=== PATIENT | male | born 1975 | race Caucasian/White ===

== ENCOUNTER 2016-08-27 21:05 | Emergency (ER) | payer MEDICAID ==
[2016-08-27] MEDS ORDERED: CEPHALEXIN 250 MG Prepack 8 PO STA (22:16)
[2016-08-27] MEDS ORDERED: CEPHALEXIN 250 MG CAPSULE PO STA (22:16)
[2016-08-27] MEDS ORDERED: SULFAMETH/TRIMETH DS 800/160 MG TABLET PO STA (22:16)
[2016-08-27] MEDS ORDERED: CEPHALEXIN 250 MG CAPSULE PO ONE (22:19)
[2016-08-27] MEDS ORDERED: SULFAMETH/TRIMETH DS 800/160 MG TABLET PO ONE (22:20)
[2016-08-27] MEDS ORDERED: CEPHALEXIN 250 MG Prepack 8 PO ONE (22:20)
== END 2016-08-27 22:36 | disposition home or self-care (01) ==
DX: L02.416 Cutaneous abscess of left lower limb (principal); L03.116 Cellulitis of left lower limb; F17.200 Nicotine dependence, unspecified, uncomplicated
CPT/HCPCS: 99283; A9270

== ENCOUNTER 2017-04-11 10:14 | Emergency (ER) | payer MEDICAID ==
[2017-04-11] MEDS ORDERED: KETOROLAC 60 MG/2 ML VIAL IM STA (10:56)
--- NOTE | 2017-04-11 10:58 | ED Physician Documentation ---
PD HPI BACK PAIN - Stated complaint Stated Complaint: BACK PX - Chief complaint Chief Complaint: Back Pain - History obtained from History obtained from: Patient - History of Present Illness Timing - onset: How many weeks ago (1) Timing - duration: Weeks (1) Timing - details: Gradual onset Pain level max: 7 Pain level now: 5 Location: Lower, Right, Left Quality: Pain, Spasm Associated symptoms: No: Fever, Weakness, Numbness, Incontinent of urine, Unable to urinate, Hematuria, Incontinent of stool Improves with: Rest, Meds (motrin) Worsened by: Movement, Lifting, Twisting Contributing factors: Other (doesn't recall any injury). 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 Came for evaluation. No fevers. No IV drug use. No trauma. No neurological deficits Review of Systems Constitutional: denies: Fever, Chills GI: denies: Vomiting Neurologic: denies: Headache, Head injury PD PAST MEDICAL HISTORY - Past Medical History Cardiovascular: None Respiratory: None Neuro: None Endocrine/Autoimmune: None GI: None : None HEENT: None Psych: Depression, Anxiety, Post traumatic stress disorder Musculoskeletal: None Derm: None - Past Surgical History Past Surgical History: Yes - Present Medications Home Medications: Ambulatory Orders Medication Instructions Recorded Confirmed Buspirone HCl 5 mg PO DAILY 04/11/17 04/11/17 Cyclobenzaprine [Flexeril] 10 mg PO TID PRN #20 tablet 04/11/17 Meloxicam [Mobic] 7.5 mg PO BID PRN #20 tablet 04/11/17 - Allergies Allergies/Adverse Reactions: Allergies Allergy/AdvReac Type Severity Reaction Status Date / Time No Known Drug Allergies Allergy Verified 08/06/16 10:39 - Social History Does the pt smoke?: Yes Smoking Status: Current every day smoker Does the pt drink ETOH?: No Does the pt have substance abuse?: No - Immunizations Immunizations are current?: Yes - POLST Patient has POLST: No PD ED PE NORMAL - Vitals Vital signs reviewed: Yes - General General: Alert and oriented X 3, No acute distress - HEENT HEENT: Moist mucous membranes - Neck Neck: Supple, no meningeal sign - Cardiac Cardiac: RRR - Respiratory Respiratory: No respiratory distress, Clear bilaterally - Abdomen Abdomen: Soft, Non tender, Non distended - Back Back: No spinal TTP (To palpation or percussion), Other (Paraspinal spasm, mild low lumbar bilaterally.) - Derm Derm: Warm and dry - Extremities Extremities: Other (normal bilateral lower extremity patellar and ankle jerk reflexes. Normal great toe extension bilaterally) - Neuro Neuro: Alert and oriented X 3, No motor deficit, No sensory deficit - Psych Psych: Normal mood, Normal affect Results - Vitals Vitals: Vital Signs - 24 hr 04/11/17 04/11/17 10:27 11:25 Temperature 36.7 C 36.7 C Heart Rate 73 62 Respiratory 18 18 Rate Blood Pressure 109/68 112/70 O2 Saturation 98 98 Oxygen O2 Source Room air PD MEDICAL DECISION MAKING - ED course Complexity details: considered differential (No ST elevation HI, no aortic dissection, no PE, no tension pneumothorax, no aortic aneurysm), d/w patient ED course: Patient is a 42-year-old male who presents to the emergency department with low back pain, this appears to be muscular in nature. No evidence of fracture, cauda equina, epidural abscess. No neurological deficits. Pain improved. Ambulating without difficulty. Will continue supportive care and follow-up with his doctor. Patient counseled regarding signs and symptoms for which I believe and urgent re-evaluation would be necessary. Patient with good understanding of and agreement to plan and is comfortable going home at this time This document was made in part using voice recognition software. While efforts are made to proofread this document, sound alike and grammatical errors may occur. Departure - Departure Disposition: 01 Home, Self Care Clinical Impression: Back strain Qualifiers: Encounter type: initial encounter Qualified Code(s): S39.012A - Strain of muscle, fascia and tendon of lower back, initial encounter Condition: Good Instructions: ED Sprain Strain Lumbar Follow-Up: your,doctor in 1 week [Other] Prescriptions: Cyclobenzaprine [Flexeril] 10 mg PO TID PRN #20 tablet PRN Reason: Spasms Meloxicam [Mobic] 7.5 mg PO BID PRN #20 tablet PRN Reason: pain Comments: Return if you worsen. This should improve over the next few days. Do not drive or operate heavy machinery while taking the flexeril. Forms: Activity restrictions Discharge Date/Time: 04/11/17 11:25
[2017-04-11] MEDS ORDERED: KETOROLAC 60 MG/2 ML VIAL ONE (11:03)
[2017-04-11 11:28] VITALS: BP 112/70
== END 2017-04-11 11:25 | disposition home or self-care (01) ==
LOC: ED 10:14
DX: S39.012A Strain of muscle, fascia and tendon of lower back, initial encounter (principal); X50.3XXA Overexertion from repetitive movements, initial encounter; F17.200 Nicotine dependence, unspecified, uncomplicated
CPT/HCPCS: 96372; 99283

== ENCOUNTER 2017-04-15 11:53 | Emergency (ER) | payer MEDICAID ==
--- NOTE | 2017-04-15 13:12 | ED Physician Documentation ---
PD HPI BACK PAIN - Stated complaint Stated Complaint: BACK PX - Chief complaint Chief Complaint: Back Pain - History obtained from History obtained from: Patient - History of Present Illness Timing - onset: Other (He has long-standing back spasms which worsened recently and he has pain that goes from the upper lumbar region up to between his shoulder blades that is much worse when he bends over or twists. There is no associated radiation into the legs, no weakness, numbness, tingling, saddle anesthesia, or fever with it. He basically says he needs a new work note because he needs another couple of days off although declines a new prescription , the cyclobenzaprine and Mobic he received here the other day are sufficient.) Review of Systems Constitutional: denies: Fever, Chills Ears: denies: Loss of hearing, Ear pain Nose: denies: Rhinorrhea / runny nose, Congestion PD PAST MEDICAL HISTORY - Past Medical History Past Medical History: Yes Cardiovascular: None Respiratory: None Neuro: None Endocrine/Autoimmune: None GI: None : None HEENT: None Psych: Depression, Anxiety, Post traumatic stress disorder Musculoskeletal: None Derm: None - Past Surgical History Past Surgical History: Yes - Present Medications Home Medications: Ambulatory Orders Medication Instructions Recorded Confirmed Buspirone HCl 5 mg PO DAILY 04/11/17 04/15/17 Cyclobenzaprine [Flexeril] 10 mg PO TID PRN #20 tablet 04/11/17 04/15/17 Meloxicam [Mobic] 7.5 mg PO BID PRN #20 tablet 04/11/17 04/15/17 - Allergies Allergies/Adverse Reactions: Allergies Allergy/AdvReac Type Severity Reaction Status Date / Time No Known Drug Allergies Allergy Verified 04/15/17 12:08 - Social History Does the pt smoke?: Yes Smoking Status: Current every day smoker Does the pt drink ETOH?: No Does the pt have substance abuse?: No - Immunizations Immunizations are current?: Yes - POLST Patient has POLST: No PD ED PE NORMAL - Vitals Vital signs reviewed: Yes - General General: Alert and oriented X 3, No acute distress - Abdomen Abdomen: Non tender - Back Back: No spinal TTP, Other (He has obvious tender spasm of bilateral parathoracic and paralumbar musculature.) - Extremities Extremities: Other (The patient has equal and normal Achilles and patellar reflexes bilaterally. Normal sensation in all areas of the legs. Patient denies saddle anesthesia. Normal strength in flexion-extension at the ankles, knees, and flexion of the hips.) - Neuro Neuro: Alert and oriented X 3, Normal speech - Psych Psych: Normal mood, Normal affect Results - Vitals Vitals: Vital Signs - 24 hr 04/15/17 12:05 Temperature 36.6 C Heart Rate 68 Respiratory 15 Rate Blood Pressure 113/72 O2 Saturation 100 Oxygen O2 Source Room air PD MEDICAL DECISION MAKING - ED course ED course: This patient has seemingly uncomplicated musculoskeletal back pain. The patient has no "red flags." Specifically denies IV drug use, fevers, incontinence, saddle anesthesia. Spinal epidural abscess was considered, given that the patient has no fever, is not diabetic, has no spinal tenderness, does not use IV drugs, and has no bilateral neurologic symptoms, the diagnosis of spinal epidural abscess is considered exceedingly unlikely. Departure - Departure Disposition: 01 Home, Self Care Clinical Impression: Back spasm Condition: Good Record reviewed to determine appropriate education?: Yes Instructions: ED Low Back Pain Injury Comments: Call your doctor to arrange a follow-up appointment, make the next available appointment. In the interim, return anytime if worse or if new symptoms develop. Forms: Activity restrictions
[2017-04-15 13:26] VITALS: BP 116/76
== END 2017-04-15 13:25 | disposition home or self-care (01) ==
LOC: ED 11:53
DX: M62.830 Muscle spasm of back (principal); F17.200 Nicotine dependence, unspecified, uncomplicated
CPT/HCPCS: 99282; 99283

== ENCOUNTER 2019-07-30 15:17 | Emergency (ER) | payer MEDICAID ==
[2019-07-30 15:27] VITALS: BP 120/71
--- NOTE | 2019-07-30 16:49 | ED Physician Documentation ---
PD HPI HEENT - Stated complaint Stated Complaint: BILAT EAR PAIN/DRAINAGE - WORK CLEARANCE - Chief complaint Chief Complaint: Heent - History obtained from History obtained from: Patient - History of Present Illness Timing - onset: How many days ago (he had been sick with URI type symptoms for several days and was off work. He needs note to say okay to return. Also has had cry skin at folds of ear and uses ointment, but is now having drainage and red/tender at those areas.) Timing - duration: Days (few) Timing - details: Gradual onset Location: Right ear (both ear skin at folds behind ear and in inner helix showing some dry skin and then some redness with crusting.), Left ear Associated symptoms: No: Fever Similar symptoms before: Has not had sx before Review of Systems Constitutional: denies: Fever Nose: denies: Rhinorrhea / runny nose, Congestion Throat: denies: Sore throat Respiratory: reports: Cough (previously, improved now) PD PAST MEDICAL HISTORY - Past Medical History Cardiovascular: None Respiratory: None Endocrine/Autoimmune: None GI: None : None HEENT: None Psych: Depression, Anxiety, Post traumatic stress disorder Musculoskeletal: None Derm: None - Past Surgical History Past Surgical History: Yes - Present Medications Home Medications: Ambulatory Orders Medication Instructions Recorded Confirmed Buspirone HCl 5 mg PO DAILY 04/11/17 04/15/17 Cyclobenzaprine [Flexeril] 10 mg PO TID PRN #20 tablet 04/11/17 04/15/17 Meloxicam [Mobic] 7.5 mg PO BID PRN #20 tablet 04/11/17 04/15/17 Doxycycline Monohydrate 100 mg PO BID #10 tablet 07/30/19 Mupirocin 1 applic TP TID #15 g 07/30/19 - Allergies Allergies/Adverse Reactions: Allergies Allergy/AdvReac Type Severity Reaction Status Date / Time No Known Drug Allergies Allergy Verified 07/30/19 15:26 - Social History Does the pt smoke?: Yes Smoking Status: Current every day smoker Does the pt drink ETOH?: No Does the pt have substance abuse?: No - Immunizations Immunizations are current?: Yes - POLST Patient has POLST: No PD ED PE NORMAL - Vitals Vital signs reviewed: Yes - General General: Alert and oriented X 3, Well developed/nourished - HEENT HEENT: Ears normal (TMs and canals okay. The skin at the earlobe folds with d ryness and small secondary infection. ), Pharynx benign, Other (both ear skin at folds behind ear and in inner helix showing some dry skin and then some redness with crusting.) - Neck Neck: Supple, no meningeal sign, No adenopathy - Cardiac Cardiac: RRR, No murmur - Respiratory Respiratory: Clear bilaterally Results - Vitals Vitals: Vital Signs - 24 hr 07/30/19 15:23 Temperature 36.6 C Heart Rate 71 Respiratory 16 Rate Blood Pressure 120/71 O2 Saturation 100 Oxygen O2 Source Room air PD MEDICAL DECISION MAKING - ED course Complexity details: considered differential (had had URI and took couple days off work, need note to say okay to resume work. Also has earlobe skin infection to check, looks like dry skin eczema with secondary impetiginous infection as well. ), d/w patient Departure - Departure Disposition: 01 Home, Self Care Clinical Impression: Skin infection Condition: Stable Record reviewed to determine appropriate education?: Yes Prescriptions: Doxycycline Monohydrate 100 mg PO BID #10 tablet Mupirocin 1 applic TP TID #15 g Comments: Sounds like you are okay to return to work from your recent upper respiratory infection. The skin infection you have looks likely to be staph or strep related to the underlying dry skin area. Cleanse with soap and water 2-3 times a day and apply mupirocin antibiotic ointment. Also doxycycline oral antibiotic as directed. You can use skin moisturizing cream or ointment over the antibiotic ointment or after you are done with that to keep the area from drying out. Recheck if not improved well over the next few days and resolved over 4 to 5 days. Forms: Activity restrictions Discharge Date/Time: 07/30/19 17:14
[2019-07-30] MEDS ORDERED: MUPIROCIN 2% OINT 1 GM TOP STA (16:56)
[2019-07-30] MEDS ORDERED: DOXYCYCLINE 100 MG TABLET PO STA (16:56)
== END 2019-07-30 17:14 | disposition home or self-care (01) ==
LOC: ED 15:17
DX: L08.9 Local infection of the skin and subcutaneous tissue, unspecified (principal); F17.200 Nicotine dependence, unspecified, uncomplicated
CPT/HCPCS: 99282; 99283; A9270

== ENCOUNTER 2019-10-04 20:30 | Emergency (ER) | payer MEDICAID ==
[2019-10-04 20:38] VITALS: BP 135/76
--- NOTE | 2019-10-04 21:21 | ED Physician Documentation ---
History of Present Illness - Stated complaint Stated Complaint: PANIC ATTACK - Chief complaint Chief Complaint: MHE - History obtained from History obtained from: Patient (44-year-old gentleman with history of anxiety, its been flared the last few days and he missed work because of it. He is now feeling better and has an appointment to see his prescriber tomorrow, but needs a note that says he can go back to work without any restrictions. He has no current complaints. No current anxiety. No thoughts of hurting himself or others.) Review of Systems Constitutional: denies: Fever, Chills Cardiac: reports: Reviewed and negative Respiratory: reports: Reviewed and negative PD PAST MEDICAL HISTORY - Past Medical History Past Medical History: Yes Cardiovascular: None Respiratory: None Endocrine/Autoimmune: None GI: None : None HEENT: None Psych: Depression, Anxiety, Post traumatic stress disorder Musculoskeletal: None Derm: None - Past Surgical History Past Surgical History: Yes - Present Medications Home Medications: Ambulatory Orders Medication Instructions Recorded Confirmed Buspirone HCl 5 mg PO DAILY 04/11/17 04/15/17 Cyclobenzaprine [Flexeril] 10 mg PO TID PRN #20 tablet 04/11/17 04/15/17 Meloxicam [Mobic] 7.5 mg PO BID PRN #20 tablet 04/11/17 04/15/17 Doxycycline Monohydrate 100 mg PO BID #10 tablet 07/30/19 Mupirocin 1 applic TP TID #15 g 07/30/19 - Allergies Allergies/Adverse Reactions: Allergies Allergy/AdvReac Type Severity Reaction Status Date / Time No Known Drug Allergies Allergy Verified 10/04/19 20:34 - Social History Does the pt smoke?: Yes Smoking Status: Current every day smoker Does the pt drink ETOH?: No Does the pt have substance abuse?: No - Immunizations Immunizations are current?: Yes - POLST Patient has POLST: No PD ED PE NORMAL - Vitals Vital signs reviewed: Yes - General General: Alert and oriented X 3, No acute distress - Neck Neck: Supple, no meningeal sign, No bony TTP - Neuro Neuro: Alert and oriented X 3, No motor deficit, No sensory deficit, Normal speech Results - Vitals Vitals: Vital Signs - 24 hr 10/04/19 20:34 Temperature 36.5 C Heart Rate 80 Respiratory 14 Rate Blood Pressure 135/76 H O2 Saturation 99 Oxygen O2 Source Room air Departure - Departure Disposition: Home, Self Care Clinical Impression: Anxiety Condition: Good Record reviewed to determine appropriate education?: Yes Instructions: ED Panic Attack Comments: Follow-up with your prescriber tomorrow as scheduled. Return for new or worsening symptoms. Forms: Activity restrictions
== END 2019-10-04 21:24 | disposition home or self-care (01) ==
LOC: ED 20:30
DX: F41.9 Anxiety disorder, unspecified (principal); F17.200 Nicotine dependence, unspecified, uncomplicated
CPT/HCPCS: 99282; 99283

== ENCOUNTER 2020-01-10 14:52 | Emergency (ER) | payer MEDICAID ==
[2020-01-10 14:56] VITALS: BP 106/66
--- NOTE | 2020-01-10 14:59 | ED Physician Documentation ---
PD HPI MALE - Stated complaint Stated Complaint: MALE - Chief complaint Chief Complaint: General - History obtained from History obtained from: Patient - History of Present Illness Timing - onset: How many days ago (several days to a week of burning pain in shaft of penis with urinating, and pain in upper scrotum and penis with ejaculation yesterday.) Timing - duration: Days (several) Timing - details: Gradual onset, Intermittant Associated symptoms: Dysuria, Testiclar pain (upper scrotum on right). No: Hematuria, Discharge, Genital sore / lesion, Scrotal swelling PD HPI MALE CONTRIB FACTORS: Sexually active. No: Exposed to STD Similar symptoms before: Has not had sx before Review of Systems Constitutional: denies: Fever, Chills Throat: denies: Sore throat Respiratory: denies: Cough Neurologic: reports: Near syncope (feeling lightheaded with standing and walking the past several days. Denies recent change in fluid intake, diet, or med dose s.). denies: Generalized weakness, Focal weakness, Altered mental status, Headache PD PAST MEDICAL HISTORY - Past Medical History Cardiovascular: None Respiratory: None Endocrine/Autoimmune: None GI: None : None HEENT: None Psych: Depression, Anxiety, Post traumatic stress disorder Musculoskeletal: None Derm: None - Past Surgical History Past Surgical History: Yes - Present Medications Home Medications: Ambulatory Orders Medication Instructions Recorded Confirmed Buspirone HCl 5 mg PO DAILY 04/11/17 04/15/17 Cyclobenzaprine [Flexeril] 10 mg PO TID PRN #20 tablet 04/11/17 04/15/17 Meloxicam [Mobic] 7.5 mg PO BID PRN #20 tablet 04/11/17 04/15/17 Doxycycline Monohydrate 100 mg PO BID #10 tablet 07/30/19 Mupirocin 1 applic TP TID #15 g 07/30/19 Sulfamethox/Trimeth 800/160 1 each PO BID #14 tablet 01/10/20 [Bactrim Ds 800/160] - Allergies Allergies/Adverse Reactions: Allergies Allergy/AdvReac Type Severity Reaction Status Date / Time No Known Drug Allergies Allergy Verified 01/10/20 14:56 - Social History Does the pt smoke?: Yes Smoking Status: Current every day smoker Does the pt drink ETOH?: No Does the pt have substance abuse?: No - Immunizations Immunizations are current?: Yes - POLST Patient has POLST: No PD ED PE NORMAL - Vitals Vital signs reviewed: Yes - General General: Alert and oriented X 3, No acute distress, Well developed/nourished - HEENT HEENT: Pharynx benign - Neck Neck: Supple, no meningeal sign, No adenopathy - Cardiac Cardiac: RRR, No murmur - Respiratory Respiratory: Clear bilaterally - Abdomen Abdomen: Normal bowel sounds, Soft, Non distended - Male Male : Other (normal external genitalia. Testes normal size and lie, without tenderness nor lump. There is some slight fullness and moderate tenderness right epididymal area. ) - Back Back: No CVA TTP - Derm Derm: Normal color, Warm and dry, No rash Results - Vitals Vitals: Vital Signs - 24 hr 01/10/20 14:53 Temperature 36 C L Heart Rate 94 Respiratory 16 Rate Blood Pressure 106/66 O2 Saturation 99 Oxygen O2 Source Room air - Labs Labs: Microbiology 01/10/20 15:00 Urine Culture - Preliminary Urine,Clean Catch CULTURE IN PROGRESS. RESULTS TO FOLLOW. Laboratory Tests 01/10/20 01/10/20 01/10/20 10:00 15:00 15:46 WBC 7.5 RBC 4.82 Hgb 13.5 L Hct 42.1 MCV 87.3 MCH 28.0 MCHC 32.1 RDW 14.2 Plt Count 373 MPV 10.5 Neut # (Auto) 2.9 Lymph # (Auto) 3.6 H [place] # (Auto) 0.6 Eos # (Auto) 0.3 Baso # (Auto) 0.0 Absolute Nucleated RBC 0.00 Nucleated RBC % 0.0 Sodium Potassium Chloride Carbon Dioxide Anion Gap BUN Creatinine Estimated GFR (MDRD) Glucose Calcium Total Bilirubin AST ALT Alkaline Phosphatase Total Protein Albumin Globulin Albumin/Globulin Ratio Lipase TSH Urine Color YELLOW Urine Clarity CLEAR Urine pH 6.0 Ur Specific [place] >=1.030 H Urine Protein NEGATIVE Urine Glucose (UA) NEGATIVE Urine Ketones NEGATIVE Urine Occult Blood NEGATIVE Urine Nitrite POSITIVE H Urine Bilirubin NEGATIVE Urine Urobilinogen 1 (NORMAL) Ur Leukocyte Esterase NEGATIVE Urine RBC None Seen Urine WBC 4-5 Ur Squamous Epith Cells RARE Squamous Urine Bacteria None Seen Urine Mucus Marked Strands Ur Microscopic Review INDICATED Urine Culture Comments INDICATED Chlam trachomat DNA PCR NEGATIVE N.gonorrhoeae DNA (PCR) NEGATIVE T. vaginalis (PCR) NEGATIVE 01/10/20 01/10/20 15:46 15:46 WBC RBC Hgb Hct MCV MCH MCHC RDW Plt Count MPV Neut # (Auto) Lymph # (Auto) [place] # (Auto) Eos # (Auto) Baso # (Auto) Absolute Nucleated RBC Nucleated RBC % Sodium 140 Potassium 3.9 Chloride 105 Carbon Dioxide 26 Anion Gap 9.0 BUN 12 Creatinine 0.9 Estimated GFR (MDRD) 92 Glucose 78 Calcium 8.9 Total Bilirubin 0.6 AST 24 ALT 52 Alkaline Phosphatase 52 Total Protein 6.9 Albumin 4.0 Globulin 2.9 Albumin/Globulin Ratio 1.4 Lipase 109 H TSH 1.90 Urine Color Urine Clarity Urine pH Ur Specific [place] Urine Protein Urine Glucose (UA) Urine Ketones Urine Occult Blood Urine Nitrite Urine Bilirubin Urine Urobilinogen Ur Leukocyte Esterase Urine RBC Urine WBC Ur Squamous Epith Cells Urine Bacteria Urine Mucus Ur Microscopic Review Urine Culture Comments Chlam trachomat DNA PCR N.gonorrhoeae DNA (PCR) T. vaginalis (PCR) PD MEDICAL DECISION MAKING - ED course Complexity details: considered differential (having UTI/urethritis/epididymitis, and I don't think that accounts for his lightheaded feeling, so got some basic labs for now. ), d/w patient Departure - Departure Disposition: 01 Home, Self Care Clinical Impression: Lightheadedness, Dysuria UTI (urinary tract infection) Qualifiers: Urinary tract infection type: acute cystitis Hematuria presence: without hematuria Qualified Code(s): N30.00 - Acute cystitis without hematuria Condition: Stable Record reviewed to determine appropriate education?: Yes Instructions: ED UTI Cystitis Male Prescriptions: Sulfamethox/Trimeth 800/160 [Bactrim Ds 800/160] 1 each PO BID #14 tablet Comments: Your urine does show signs of an infection. We will treat this with an antibiotic twice daily for the next week. It does sound like some extension of the infection is in the epididymis as well. Your basic blood tests of kidney function electrolytes blood sugar and blood count appear normal. We will treat the infection of it and see how you feel after that. If you have persistent feeling of lightheadedness or such, will investigate it further but at this point no obvious signs of significant other illness. Discharge Date/Time: 01/10/20 16:23
[2020-01-10 15:09] LABS: BILIRUBIN,URINE NEGATIVE (NEGATIVE); CLARITY,URINE CLEAR (CLEAR); GLUCOSE, URINE (UA) NEGATIVE (NEGATIVE); KETONES,URINE (UA) NEGATIVE (NEGATIVE); LEUKOCYTE ESTERASE, URINE NEGATIVE (NEGATIVE); NITRITE,URINE POSITIVE (NEGATIVE); OCCULT BLOOD,URINE NEGATIVE (NEGATIVE); PROTEIN,URINE NEGATIVE (NEGATIVE); UROBILINOGEN,URINE 1 (NORMAL) E.U./dL (NORMAL)
[2020-01-10 15:17] LABS: BACTERIA,URINE None Seen /HPF (None Seen); MUCUS,URINE Marked Strands; RBC,URINE None Seen /HPF (0-5); SQUAMOUS EPITHELIAL CELL,UR RARE Squamous (<= Few)
[2020-01-10] MEDS ORDERED: SULFAMETH/TRIMETH DS 800/160 MG TABLET PO STA (15:40)
[2020-01-10] MEDS ORDERED: NAPROXEN 250 MG TABLET PO STA (15:41)
[2020-01-10 15:57] LABS: BASOPHILS % (AUTO) 0.5 %; EOSINOPHILS # (AUTO) 0.3 10^3/uL (0.0-0.7); HGB - HEMOGLOBIN 13.5 g/dL (14.0-18.0); LYMPHOCYTES # (AUTO) 3.6 10^3/uL (1.5-3.5); LYMPHOCYTES % (AUTO) 48.5 %; MEAN CORPUSCULAR HGB CONC 32.1 g/dL (32.0-36.0); MEAN CORPUSCULAR VOLUME 87.3 fL (80.0-94.0); MEAN PLATELET VOLUME 10.5 fL (7.4-11.4); MONOCYTES # (AUTO) 0.6 10^3/uL (0.0-1.0); MONOCYTES % (AUTO) 8.5 %; NEUTROPHILS # (AUTO) 2.9 10^3/uL (1.5-6.6); NEUTROPHILS % (AUTO) 38.2 %; PLT - PLATELET COUNT 373 10^3/uL (130-450); RED BLOOD COUNT 4.82 10^6/uL (4.70-6.10); RED CELL DISTRIBUTION WIDTH 14.2 % (12.0-15.0); WHITE BLOOD COUNT 7.5 x10^3/uL (4.8-10.8)
[2020-01-10 16:05] LABS: ALBUMIN/GLOBULIN RATIO 1.4 (1.0-2.2); BILIRUBIN,TOTAL 0.6 mg/dL (0.2-1.0); CALCIUM 8.9 mg/dL (8.5-10.3); CREATININE 0.9 mg/dL (0.6-1.2); TOTAL PROTEIN 6.9 g/dL (6.7-8.2)
[2020-01-10 21:29] LABS: TRICHOMONAS VAGINALIS DNA NEGATIVE (NEGATIVE)
== END 2020-01-10 16:23 | disposition home or self-care (01) ==
LOC: ED 14:52
DX: N30.00 Acute cystitis without hematuria (principal); R42 Dizziness and giddiness; F17.200 Nicotine dependence, unspecified, uncomplicated
CPT/HCPCS: 36415; 80053; 81001; 83690; 84443; 85025; 87086; 87491; 87591; 87661; 99283; 99284; A9270; 81003

== ENCOUNTER 2020-01-14 20:45 | Emergency (ER) | payer MEDICAID ==
--- NOTE | 2020-01-14 22:04 | ED Physician Documentation ---
History of Present Illness - Stated complaint Stated Complaint: MALE /VOM/DIZZY/NECK PX - Chief complaint Chief Complaint: Abd Pain - History obtained from History obtained from: Patient - History of Present Illness Timing: How many days ago (4-7 days) Pain level now: 5 Improved by: lying still (dizziness) Worsened by: movement, turning head - Additonal information Additional information: T+R from this ED 4 days ago, "I was diagnosed with a UTI couple days ago. I stopped taking them today because of nausea and vomiting and I thought it might be because of them" (the antibiotics). He c/o intermittent right testicular pain x 1 week. c/o episodic neck tightness x several days. c/o constipation x few days. c/o nausea, vomiting x 1-2 days. Review of Systems Constitutional: denies: Fever, Chills, Myalgias, Fatigue, Weight Loss, Sweats Cardiac: reports: Reviewed and negative Respiratory: reports: Reviewed and negative GI: reports: Nausea, Vomiting, Constipation. denies: Abdominal Pain, Abdominal Swelling, Diarrhea : reports: Testicular pain. denies: Dysuria, Frequency Skin: denies: Rash Musculoskeletal: reports: Neck pain. denies: Back pain Neurologic: denies: Headache PD PAST MEDICAL HISTORY - Past Medical History Cardiovascular: None Respiratory: None Endocrine/Autoimmune: None GI: None : None HEENT: None Psych: Depression, Anxiety, Post traumatic stress disorder Musculoskeletal: None Derm: None - Past Surgical History Past Surgical History: Yes - Present Medications Home Medications: Ambulatory Orders Medication Instructions Recorded Confirmed Buspirone HCl 5 mg PO DAILY 04/11/17 04/15/17 Cyclobenzaprine [Flexeril] 10 mg PO TID PRN #20 tablet 04/11/17 04/15/17 Meloxicam [Mobic] 7.5 mg PO BID PRN #20 tablet 04/11/17 04/15/17 Doxycycline Monohydrate 100 mg PO BID #10 tablet 07/30/19 Mupirocin 1 applic TP TID #15 g 07/30/19 Sulfamethox/Trimeth 800/160 1 each PO BID #14 tablet 01/10/20 [Bactrim Ds 800/160] Meclizine HCl 25 mg PO Q6HR PRN #20 tablet 01/15/20 Ondansetron HCl [Zofran] 4 mg PO Q6HR PRN #14 tab 01/15/20 - Allergies Allergies/Adverse Reactions: Allergies Allergy/AdvReac Type Severity Reaction Status Date / Time No Known Drug Allergies Allergy Verified 01/14/20 20:48 - Social History Does the pt smoke?: Yes Smoking Status: Current every day smoker Does the pt drink ETOH?: No Does the pt have substance abuse?: No - Immunizations Immunizations are current?: Yes - POLST Patient has POLST: No PD ED PE NORMAL - Vitals Vital signs reviewed: Yes - General General: Alert and oriented X 3, No acute distress, Well developed/nourished - HEENT HEENT: Moist mucous membranes - Neck Neck: Supple, no meningeal sign - Cardiac Cardiac: RRR, No murmur, No gallop, No rub - Respiratory Respiratory: No respiratory distress, Clear bilaterally - Abdomen Abdomen: Soft, Non tender, Non distended - Back Back: No CVA TTP - Derm Derm: Normal color, Warm and dry Results - Vitals Vitals: Vital Signs - 24 hr 01/14/20 01/15/20 20:48 00:52 Temperature 36.5 C Heart Rate 83 79 Respiratory 14 14 Rate Blood Pressure 138/85 H 140/87 H O2 Saturation 100 100 Oxygen O2 Source Room air - Labs Labs: Laboratory Tests 01/14/20 01/14/20 01/14/20 22:30 23:35 23:35 WBC 10.1 RBC 4.75 Hgb 13.2 L Hct 41.4 L MCV 87.2 MCH 27.8 MCHC 31.9 L RDW 14.1 Plt Count 372 MPV 10.4 Neut # (Auto) 3.9 Lymph # (Auto) 4.7 H [place] # (Auto) 0.9 Eos # (Auto) 0.5 Baso # (Auto) 0.1 Absolute Nucleated RBC 0.00 Nucleated RBC % 0.0 Sodium 138 Potassium 3.9 Chloride 104 Carbon Dioxide 29 Anion Gap 5.0 L BUN 15 Creatinine 1.1 Estimated GFR (MDRD) 73 L Glucose 67 L Calcium 9.1 Total Bilirubin 0.4 AST 41 ALT 74 H Alkaline Phosphatase 74 Total Protein 7.3 Albumin 4.3 Globulin 3.0 Albumin/Globulin Ratio 1.4 Lipase 156 H Urine Color YELLOW Urine Clarity HAZY Urine pH 7.0 Ur Specific [place] 1.020 Urine Protein NEGATIVE Urine Glucose (UA) NEGATIVE Urine Ketones TRACE Urine Occult Blood NEGATIVE Urine Nitrite NEGATIVE Urine Bilirubin NEGATIVE Urine Urobilinogen 0.2 (NORMAL) Ur Leukocyte Esterase NEGATIVE Urine RBC None Seen Urine WBC 0-3 Ur Squamous Epith Cells NONE SEEN Amorphous Sediment Marked Urine Bacteria Rare Ur Microscopic Review INDICATED Urine Culture Comments NOT INDICATED - Rads (name of study) testicular US Radiology: Prelim report reviewed, See rad report PD MEDICAL DECISION MAKING - ED course Complexity details: reviewed old records, reviewed results, re-evaluated patient, considered differential, d/w patient ED course: Patient reported improvement after IV fluids, zofran and meclizine. mild elevation in lipase but nontender abdomen initially and on reevaluation. Departure - Departure Disposition: 01 Home, Self Care Clinical Impression: Dizziness Vomiting Qualifiers: Vomiting type: unspecified Vomiting Intractability: non-intractable Nausea presence: with nausea Qualified Code(s): R11.2 - Nausea with vomiting, unspecified Condition: Good Instructions: ED Dizziness [facility]O, Meclizine, ED Nausea Vomiting Prescriptions: Meclizine HCl 25 mg PO Q6HR PRN #20 tablet PRN Reason: Dizziness Ondansetron HCl [Zofran] 4 mg PO Q6HR PRN #14 tab PRN Reason: Nausea / Vomiting Discharge Date/Time: 01/15/20 00:52
[2020-01-14] MEDS ORDERED: MECLIZINE 12.5 MG TABLET PO STA (22:18)
[2020-01-14] MEDS ORDERED: ONDANSETRON ODT 4 MG TABLET TL STA (22:18)
[2020-01-14 22:51] LABS: BILIRUBIN,URINE NEGATIVE (NEGATIVE); GLUCOSE, URINE (UA) NEGATIVE (NEGATIVE); KETONES,URINE (UA) TRACE mg/dL (NEGATIVE); LEUKOCYTE ESTERASE, URINE NEGATIVE (NEGATIVE); NITRITE,URINE NEGATIVE (NEGATIVE); OCCULT BLOOD,URINE NEGATIVE (NEGATIVE); PROTEIN,URINE NEGATIVE (NEGATIVE); UROBILINOGEN,URINE 0.2 (NORMAL) E.U./dL (NORMAL)
[2020-01-14 22:53] LABS: CLARITY,URINE HAZY (CLEAR)
[2020-01-14 23:00] LABS: AMORPHOUS SEDIMENT,UR Marked /LPF; BACTERIA,URINE Rare /HPF (None Seen); RBC,URINE None Seen /HPF (0-5); SQUAMOUS EPITHELIAL CELL,UR NONE SEEN (<= Few)
[2020-01-14] MEDS ORDERED: SODIUM CHLORIDE 0.9% 1,000 ML IV STA (23:25)
[2020-01-14 23:39] LABS: BASOPHILS # (AUTO) 0.1 10^3/uL (0.0-0.1); BASOPHILS % (AUTO) 0.9 %; EOSINOPHILS # (AUTO) 0.5 10^3/uL (0.0-0.7); EOSINOPHILS % (AUTO) 4.9 %; HGB - HEMOGLOBIN 13.2 g/dL (14.0-18.0); LYMPHOCYTES # (AUTO) 4.7 10^3/uL (1.5-3.5); LYMPHOCYTES % (AUTO) 46.2 %; MEAN CORPUSCULAR HEMOGLOBIN 27.8 pg (27.0-31.0); MEAN CORPUSCULAR HGB CONC 31.9 g/dL (32.0-36.0); MEAN CORPUSCULAR VOLUME 87.2 fL (80.0-94.0); MEAN PLATELET VOLUME 10.4 fL (7.4-11.4); MONOCYTES # (AUTO) 0.9 10^3/uL (0.0-1.0); MONOCYTES % (AUTO) 8.6 %; NEUTROPHILS # (AUTO) 3.9 10^3/uL (1.5-6.6); NEUTROPHILS % (AUTO) 38.9 %; PLT - PLATELET COUNT 372 10^3/uL (130-450); RED BLOOD COUNT 4.75 10^6/uL (4.70-6.10); RED CELL DISTRIBUTION WIDTH 14.1 % (12.0-15.0); WHITE BLOOD COUNT 10.1 x10^3/uL (4.8-10.8)
[2020-01-14 23:51] LABS: ALBUMIN 4.3 g/dL (3.2-5.5); ALBUMIN/GLOBULIN RATIO 1.4 (1.0-2.2); BILIRUBIN,TOTAL 0.4 mg/dL (0.2-1.0); CALCIUM 9.1 mg/dL (8.5-10.3); CREATININE 1.1 mg/dL (0.6-1.2); TOTAL PROTEIN 7.3 g/dL (6.7-8.2)
--- NOTE | 2020-01-14 23:54 | Ultrasound Report ---
Reason: right testicular pain Procedure Date: 01/14/2020 Accession Number: [id number] / [id number] Procedure: US - Testicle w/Doppler CPT Code: Final Report FULL RESULT: EXAM: SCROTAL ULTRASOUND EXAM DATE: 01/14/2020 11:18 PM. CLINICAL HISTORY: Right testicular pain. COMPARISON: None. TECHNIQUE: Real-time scanning was performed with static images obtained. Color-flow images were utilized. FINDINGS: Right: Testis: 6.0 x 2.7 x 4.1 cm. Normal size and echotexture. No mass, calcification, or abnormal blood flow. Epididymis: 2.3 x 1.5 cm. Normal size and echotexture. No mass or abnormal blood flow. 6 mm cyst. Hydrocele: None. Varicocele: None. Left: Testis: 5.5 x 2.5 x 3.3 cm. Normal size and echotexture. No mass, calcification, or abnormal blood flow. Epididymis: 1.7 x 1.0 cm. Normal size and echotexture. No mass or abnormal blood flow. Hydrocele: None. Varicocele: None. IMPRESSION: No acute sonographic abnormalities. RADIA
[2020-01-15] MEDS ORDERED: ONDANSETRON ODT 4 MG Prepack 2 TL STA (00:27)
[2020-01-15 00:53] VITALS: BP 140/87
== END 2020-01-15 00:52 | disposition home or self-care (01) ==
LOC: ED 20:45
DX: R42 Dizziness and giddiness (principal); R11.2 Nausea with vomiting, unspecified; N50.811 Right testicular pain; R74.8 Abnormal levels of other serum enzymes; F17.200 Nicotine dependence, unspecified, uncomplicated
CPT/HCPCS: 36415; 76870; 80053; 81001; 83690; 85025; 93975; 96360; 99284; A9270; Q0162; 81003; 87086

== ENCOUNTER 2021-03-17 09:33 | Emergency (ER) | payer MEDICAID ==
[2021-03-17 10:33] LABS: BILIRUBIN,URINE NEGATIVE (NEGATIVE); GLUCOSE, URINE (UA) NEGATIVE (NEGATIVE); KETONES,URINE (UA) NEGATIVE (NEGATIVE); LEUKOCYTE ESTERASE, URINE NEGATIVE (NEGATIVE); NITRITE,URINE NEGATIVE (NEGATIVE); OCCULT BLOOD,URINE NEGATIVE (NEGATIVE); PROTEIN,URINE NEGATIVE (NEGATIVE); UROBILINOGEN,URINE 0.2 (NORMAL) E.U./dL (NORMAL)
[2021-03-17 10:36] LABS: CLARITY,URINE CLEAR (CLEAR)
[2021-03-17 10:50] LABS: RBC,URINE None Seen /HPF (0-5)
[2021-03-17 10:51] LABS: BACTERIA,URINE Few /HPF (None Seen); MUCUS,URINE Moderate Strands; SQUAMOUS EPITHELIAL CELL,UR FEW Squamous (<= Few)
--- NOTE | 2021-03-17 11:07 | Ultrasound Report ---
PROCEDURE: Testicle w/Doppler INDICATIONS: testicular pain R TECHNIQUE: Real-time scanning was performed of the scrotum and testicles, with image documentation. Color and p ulse Doppler interrogation was performed of both testicles. COMPARISON: None. FINDINGS: Right: Testicle is normal in size at 5.6 x 2.8 x 3.8 cm, and homogenous in echotexture. Epididymis is normal in overall size and morphology. No varicoceles. Very small hydrocele. Overlying scrotal sk in is normal in thickness. Left: Testicle is normal in size at 5.6 x 2.5 x 3.6 cm, and homogeneous in echotexture. Epididymis is normal in overall size and morphology. Incidental epididymal head cyst. No hydrocele or varicocel es. Overlying scrotal skin is normal in thickness. Doppler: Color and pulse Doppler demonstrate normal and symmetric arterial flow in both testicles. IMPRESSION: Very small right hydrocele. This is likely physiologic in etiology. Otherwise, bilateral testicles wi thout evidence for acute sonographic abnormalities. No evidence for testicular torsion. Reviewed by: Jose Chung MD on 03/17/2021 11:06 AM PDT Approved by: Jose Chung MD on 03/17/2021 11:06 AM PDT Station ID: [id number]
--- NOTE | 2021-03-17 11:08 | ED Physician Documentation ---
History of Present Illness - Stated complaint Stated Complaint: MALE - Chief complaint Chief Complaint: General - History obtained from History obtained from: Patient - Additonal information Additional information: Patient comes emergency department chief complaint of right testicular pain during sexual intercourse. Patient states that it got to its point of maximal intensity as he was about to orgasm, and has improved since. Patient states this happened to him previously, but it has been a long time. At that time, he saw a urologist and nothing specific was ever found to be wrong. Patient states he is feeling quite a bit better now but was just concerned about the degree of pain. He denies any swelling or bulging in his scrotum. No fevers or chills. No abdominal pain. No urinary symptoms. Patient has been able to urinate and ejaculate without difficulty. No drainage from his urethral meatus. No other complaints at this time. Review of Systems Ten Systems: 10 systems reviewed and negative Constitutional: reports: Reviewed and negative Eyes: reports: Reviewed and negative Ears: reports: Reviewed and negative Nose: reports: Reviewed and negative Throat: reports: Reviewed and negative Cardiac: reports: Reviewed and negative Respiratory: reports: Reviewed and negative GI: reports: Reviewed and negative : reports: Testicular pain Skin: reports: Reviewed and negative Musculoskeletal: reports: Reviewed and negative Neurologic: reports: Reviewed and negative Psychiatric: reports: Reviewed and negative Endocrine: reports: Reviewed and negative Immunocompromised: reports: Reviewed and negative PD PAST MEDICAL HISTORY - Past Medical History Cardiovascular: None Respiratory: None Endocrine/Autoimmune: None GI: None : None HEENT: None Psych: Depression, Anxiety, Post traumatic stress disorder Musculoskeletal: None Derm: None Other Past Medical History: epididymitis - Past Surgical History Past Surgical History: Yes - Present Medications Home Medications: Ambulatory Orders Medication Instructions Recorded Confirmed Buspirone HCl 5 mg PO DAILY 04/11/17 04/15/17 Cyclobenzaprine [Flexeril] 10 mg PO TID PRN #20 tablet 04/11/17 04/15/17 Meloxicam [Mobic] 7.5 mg PO BID PRN #20 tablet 04/11/17 04/15/17 Doxycycline Monohydrate 100 mg PO BID #10 tablet 07/30/19 Mupirocin 1 applic TP TID #15 g 07/30/19 Sulfamethox/Trimeth 800/160 1 each PO BID #14 tablet 01/10/20 [Bactrim Ds 800/160] Meclizine HCl 25 mg PO Q6HR PRN #20 tablet 01/15/20 Ondansetron HCl [Zofran] 4 mg PO Q6HR PRN #14 tab 01/15/20 Naproxen 250 mg PO BID PRN #20 tablet 03/17/21 - Allergies Allergies/Adverse Reactions: Allergies Allergy/AdvReac Type Severity Reaction Status Date / Time No Known Drug Allergies Allergy Verified 03/17/21 09:53 - Social History Does the pt smoke?: Yes Smoking Status: Current every day smoker Does the pt drink ETOH?: No Does the pt have substance abuse?: Yes Substance Use and Type: Marijuana - Immunizations Immunizations are current?: Yes - POLST Patient has POLST: No PD ED PE NORMAL - Vitals Vital signs reviewed: Yes - General General: Alert and oriented X 3, No acute distress - HEENT HEENT: Atraumatic, PERRL, EOMI, Moist mucous membranes - Neck Neck: Supple, no meningeal sign - Respiratory Respiratory: No respiratory distress - Abdomen Abdomen: Soft, Non tender, Non distended - Male Male : Other (Mild right testicular tenderness. No edema. No mass. No skin changes. No penile abnormalities. Left testicle and scrotum are normal.) - Derm Derm: Warm and dry - Extremities Extremities: No deformity - Neuro Neuro: Alert and oriented X 3 - Psych Psych: Normal mood, Normal affect Results - Vitals Vitals: Vital Signs - 24 hr 03/17/21 03/17/21 09:48 11:16 Temperature 37.2 C 36.1 C L Heart Rate 114 H 85 Respiratory 18 12 Rate Blood Pressure 126/96 H 124/83 H O2 Saturation 100 98 Oxygen O2 Source Room air - Labs Labs: Laboratory Tests 03/17/21 09:58 Urine Color YELLOW Urine Clarity CLEAR Urine pH 6.0 Ur Specific [place] 1.025 Urine Protein NEGATIVE Urine Glucose (UA) NEGATIVE Urine Ketones NEGATIVE Urine Occult Blood NEGATIVE Urine Nitrite NEGATIVE Urine Bilirubin NEGATIVE Urine Urobilinogen 0.2 (NORMAL) Ur Leukocyte Esterase NEGATIVE Urine RBC None Seen Urine WBC 6-10 H Ur Squamous Epith Cells FEW Squamous Urine Bacteria Few Urine Mucus Moderate Strands - Rads (name of study) Testicular ultrasound Radiology: Prelim report reviewed, Final report received, See rad report (neg) PD MEDICAL DECISION MAKING - ED course Complexity details: reviewed results, re-evaluated patient, considered differential, d/w patient ED course: Patient was worked up with a testicular ultrasound, which was unremarkable. We have discussed urology follow-up as the patient continues to have the symptoms with sexual intercourse. We have discussed anti-inflammatories, supportive underwear, and the usual indications for return. Departure - Departure Disposition: 01 Home, Self Care Clinical Impression: Testicular pain, right Condition: Stable Instructions: ED Testicular Pain [facility] Follow-Up: Ted Armenta MD [Physician No Access] - Prescriptions: Naproxen 250 mg PO BID PRN #20 tablet PRN Reason: Pain Discharge Date/Time: 03/17/21 11:13
[2021-03-17 11:17] VITALS: BP 124/83
== END 2021-03-17 11:13 | disposition home or self-care (01) ==
LOC: ED 09:33
DX: N50.811 Right testicular pain (principal); F17.200 Nicotine dependence, unspecified, uncomplicated
CPT/HCPCS: 81001; 93975; 99284

== ENCOUNTER 2023-05-26 16:43 | Emergency (ER) | payer MEDICAID ==
[2023-05-26 17:57] LABS: B. PARAPERTUSSIS- RESP PCR PAN NOT DETECTED; B. PERTUSSIS- RESP PCR PANEL NOT DETECTED; C. PNEUMONIAE- RESP PCR PANEL NOT DETECTED; CORONAVIRUS 229E-RESP PCR NOT DETECTED; CORONAVIRUS HKU1-RESP PCR NOT DETECTED; CORONAVIRUS NL63-RESP PCR NOT DETECTED; CORONAVIRUS OC43-RESP PCR NOT DETECTED; HUMAN METAPNEUMOVIRUS NOT DETECTED; INFLUENZA A- RESP PCR PANEL NOT DETECTED; INFLUENZA B - RESP PCR PANEL NOT DETECTED; M. PNEUMONIAE- RESP PCR PANEL NOT DETECTED; PARAINFLUENZA VIRUS 1 NOT DETECTED; PARAINFLUENZA VIRUS 2 NOT DETECTED; PARAINFLUENZA VIRUS 3 NOT DETECTED; PARAINFLUENZA VIRUS 4 NOT DETECTED; RHINOVIRUS/ENTEROVIRUS NOT DETECTED; RSV- RESP PCR PANEL NOT DETECTED; SARS-CoV-2 -RESP PCR PANEL DETECTED
--- NOTE | 2023-05-26 18:20 | ED Physician Documentation ---
History of Present Illness - Stated complaint Stated Complaint: NAUSEA/FATIGUE/EAR PX - Chief complaint Chief Complaint: Heent - History obtained from History obtained from: Patient - History of Present Illness Timing: How many days ago (2) Pain level max: 0 Pain level now: 0 - Additonal information Additional information: 48-year-old male presents to the emergency department with generalized fatigue for the past 2 days, fevers, body aches, mild sore throat. Mild cough. Better with Motrin and Tylenol, nothing makes it worse. No difficulty breathing. No difficulty speaking or swallowing. No abdominal pain. No trauma, no headache. No chest pain. Review of Systems Constitutional: reports: Fever, Chills GI: denies: Vomiting, Diarrhea Skin: denies: Rash Musculoskeletal: denies: Neck pain, Back pain Neurologic: denies: Seizure, Confused, Headache, Head injury, LOC PD PAST MEDICAL HISTORY - Past Medical History Cardiovascular: None Respiratory: None Endocrine/Autoimmune: None GI: None : None HEENT: None Psych: Depression, Anxiety, Post traumatic stress disorder Musculoskeletal: None Derm: None - Past Surgical History Past Surgical History: Yes - Present Medications Home Medications: Ambulatory Orders Medication Instructions Recorded Confirmed Buspirone HCl 5 mg PO DAILY 04/11/17 04/15/17 Naproxen 250 mg PO BID PRN #20 tablet 03/17/21 - Allergies Allergies/Adverse Reactions: Allergies Allergy/AdvReac Type Severity Reaction Status Date / Time No Known Drug Allergies Allergy Verified 05/26/23 16:56 - Living Situation Living Arrangement: reports: At home - Social History Does the pt smoke?: Yes Smoking Status: Current every day smoker Does the pt drink ETOH?: No Does the pt have substance abuse?: Yes - Immunizations Immunizations are current?: Yes - POLST Patient has POLST: No PD ED PE NORMAL - Vitals Vital signs reviewed: Yes - General General: Alert and oriented X 3, No acute distress - HEENT HEENT: PERRL, Ears normal, Moist mucous membranes, Pharynx benign - Neck Neck: Supple, no meningeal sign - Cardiac Cardiac: RRR, No murmur, Strong equal pulses - Respiratory Respiratory: No respiratory distress, Clear bilaterally - Abdomen Abdomen: Soft, Non tender, Non distended - Derm Derm: Warm and dry - Extremities Extremities: No edema, No calf tenderness / cord - Neuro Neuro: Alert and oriented X 3 - Psych Psych: Normal mood, Normal affect Results - Vitals Vitals: Vital Signs - 24 hr 05/26/23 05/26/23 16:44 18:23 Temperature 37.3 C 37.0 C Heart Rate 83 82 Respiratory 18 18 Rate Blood Pressure 123/58 L 120/60 O2 Saturation 99 100 Oxygen O2 Source Room air - Labs Labs: Laboratory Tests 05/26/23 16:53 Nasal Adenovirus (PCR) NOT DETECTED Nasal B. parapertussis DNA (PCR) NOT DETECTED Nasal Coronavir 229E PCR NOT DETECTED Nasal Coronavir HKU1 PCR NOT DETECTED Nasal Coronavir NL63 PCR NOT DETECTED Nasal Coronavir OC43 PCR NOT DETECTED Nasal Enterovir/Rhinovir PCR NOT DETECTED Nasal Influenza B PCR NOT DETECTED Nasal Influenza A PCR NOT DETECTED Nasal Parainfluen 1 PCR NOT DETECTED Nasal Parainfluen 2 PCR NOT DETECTED Nasal Parainfluen 3 PCR NOT DETECTED Nasal Parainfluen 4 PCR NOT DETECTED Nasal RSV (PCR) NOT DETECTED Nasal B.pertussis DNA PCR NOT DETECTED Nasal C.pneumoniae (PCR) NOT DETECTED Kvng Human Metapneumo PCR NOT DETECTED Nasal M.pneumoniae (PCR) NOT DETECTED Nasal SARS-CoV-2 (PCR) DETECTED A PD Medical Decision Making - ED course Complexity details: reviewed results, considered differential, d/w patient ED course: Patient is well-appearing, nontoxic. Afebrile. No hypoxia or respiratory distress. Positive for COVID. Symptoms are consistent with COVID. He has had his COVID vaccinations. No indication for Paxlovid. Patient counseled regarding signs and symptoms for which I believe and urgent re-evaluation would be necessary. Patient with good understanding of and agreement to plan and is comfortable going home at this time This document was made in part using voice recognition software. While efforts are made to proofread this document, sound alike and grammatical errors may occur. Departure - Departure Disposition: 01 Home, Self Care Clinical Impression: COVID-19 Condition: Good Instructions: ED Viral Syndrome Follow-Up: your,doctor as needed [Other] Comments: You have tested positive for covid today. Drink plenty fluids and rest. Return if you worsen. Isolation precautions for COVID Day 0 is your first day of symptoms or a positive viral test. Day 1 is the first full day after your symptoms developed or your test specimen was collected. If you have COVID-19 or have symptoms, isolate for at least 5 days. IF YOU: Tested positive for COVID-19 or have symptoms, regardless of vaccination status Stay home for at least 5 days Stay home for 5 days and isolate from others in your home. Wear a well-fitting mask if you must be around others in your home. Do not travel. Ending isolation if you had symptoms End isolation after 5 full days if you are fever-free for 24 hours (without the use of fever-reducing medication) and your symptoms are improving. Ending isolation if you did NOT have symptoms End isolation after at least 5 full days after your positive test. If you got very sick from COVID-19 or have a weakened immune system You should isolate for at least 10 days. Consult your doctor before ending isolation. Take precautions until day 10 Wear a well-fitting mask Wear a well-fitting mask for 10 full days any time you are around others inside your home or in public. Do not go to places where you are unable to wear a mask. Do not travel Do not travel until a full 10 days after your symptoms started or the date your positive test was taken if you had no symptoms. Avoid being around people who are more likely to get very sick from COVID-19. Forms: PCP List, Activity restrictions Discharge Date/Time: 05/26/23 18:23
[2023-05-26 18:25] VITALS: BP 120/60; O2SAT 100
== END 2023-05-26 18:23 | disposition home or self-care (01) ==
LOC: ED 16:43
DX: U07.1 COVID-19 (principal); F17.200 Nicotine dependence, unspecified, uncomplicated
CPT/HCPCS: 87633; 99283